=== PATIENT | female | born 1945 | race Caucasian/White ===

== ENCOUNTER 2022-05-01 12:08 | Emergency (ER) | payer OTHER ==
[~2022-05-01] VITALS: Ht 154.9 cm; Wt 61.2 kg
[2022-05-01] MEDS ORDERED: DAPA10TA PO (12:28)
--- NOTE | 2022-05-01 12:30 | NUR ---
Pt bib RA, placed in room 2a by aircraft load controller, connected to monitor and inital VS obtained. VSS, PE WNL, NAD, pt complaining of mod to severe pain s/p ground level fall. Pain in medial back lumbar region, hurts to move. No gross deformites or outward signs of fall. Pt AAOx4 lucid and completely coherent.
[2022-05-01] MEDS ORDERED: ASPI81TA31 PO (12:34)
[2022-05-01] MEDS ORDERED: FAMO40TA7 PO (12:34)
[2022-05-01] MEDS ORDERED: CLOP75TA33 PO (12:34)
[2022-05-01] MEDS ORDERED: FURO20TA4 PO (12:34)
[2022-05-01] MEDS ORDERED: ESCI10TA PO (12:34)
[2022-05-01] MEDS ORDERED: TRAZ-257 PO (12:34)
[2022-05-01] MEDS ORDERED: LOSA50TA39 PO (12:34)
[2022-05-01] MEDS ORDERED: METO-357 PO (12:34)
[2022-05-01] MEDS ORDERED: ATOR80TA PO (12:34)
[2022-05-01] MEDS ORDERED: GABA-532 PO (12:34)
--- NOTE | 2022-05-01 12:35 | NUR ---
EDMD at bedside to eval pt. Full PE performed. NAD, PE WNL except for severe back pain in mid lumbar region upon movement. good distal pulses x4ext. Lungs ctab. pt denies any sob, n/v, dizziness. Pt states that she got dizzy and started to fall, reached out to grab the oven door handle to help stabilize her but instead took the oven door with her. No s/s xof distress present.
--- NOTE | 2022-05-01 12:40 | NUR ---
Attempted to insert 20g angio in Rt AC, got excellent blood return, but was unable to advance angio. Blood obtained, but was unable to salvage the IV. Site dressed with 2x2 and tape. Second IV attempted in Lt AC. with same issue. Was able to inject 1mg of dilaudid, however vain blew before i was able to flush line. Pt states that she feels some pain relief. Will reassess pain in 20 min. Pt denies any nausea or dizziness.
[2022-05-01] MEDS ORDERED: ONDANSETRON 4 MG/2 ML VIAL IV ONE (12:45)
[2022-05-01] MEDS ORDERED: HYDROMORPHONE 1 MG/1 ML DISP.SYRIN IV ONE (12:45)
[2022-05-01] MEDS ORDERED: HYDROMORPHONE 1 MG/1 ML DISP.SYRIN ONE ×2 (12:57→15:23)
[2022-05-01] MEDS ORDERED: ONDANSETRON 4 MG/2 ML VIAL ONE (12:57)
[2022-05-01 13:01] LABS: HEMATOCRIT 40.7 % (31.2-41.9); MEAN CORPUSCULAR HEMOGLOBIN 28.1 uug (24.7-32.8); MEAN CORPUSCULAR VOLUME 84.6 fL (75.5-95.3); PLATELET COUNT (AUTO) 327 K/uL (179-408)
--- NOTE | 2022-05-01 13:08 | NUR ---
PCXR performed at pt bedside without difficulty.
[2022-05-01 13:29] LABS: ALANINE AMINOTRANSFERASE 17 U/L (14-59); ALKALINE PHOSPHATASE 137 U/L (50-136); ASPARTATE AMINOTRANSFERASE 29 U/L (15-37); BILIRUBIN,DIRECT 0.1 mg/dL (0.0-0.2); BILIRUBIN,TOTAL 0.5 mg/dL (0.2-1.0); CARBON DIOXIDE 25 mmol/L (21-32); CHLORIDE 103 mmol/L (98-107); CREATININE 1.4 mg/dL (0.6-1.3); GLUCOSE 120 mg/dL (74-106); POTASSIUM 4.3 mmol/L (3.5-5.1); TOTAL PROTEIN, SERUM 7.7 g/dL (6.4-8.2); UREA NITROGEN, BLOOD 19 mg/dL (7-18)
--- NOTE | 2022-05-01 14:27 | NUR ---
Pt just taken down to CT by electro mechanical solar technician via [employer]. Pt's VSS with good color and temp. Pt states that she is virtually pain free when she does not move. I told her that if she feels like she needs more pain medication to just let me know.
--- NOTE | 2022-05-01 15:15 | NUR ---
Pt's reassessed at 05/17, relayed to EDMD and 1mg dilaudid IVP order obtained. Pt medicated using 6 rights and pain reassessed at 610 pain. current pain rating relayed to EDMD.
--- NOTE | 2022-05-01 16:00 | NUR ---
Pt disconnected from monitor and gotten up out of bed and ambulated to bathroom with steady gait and minimal pain. VSS, 101/64, 98% RA, 16rpm, 78bpm. no s/sx of distress present.
--- NOTE | 2022-05-01 16:00 | NUR ---
EDMD at bedside to discuss dispo with pt. Pt will be dced home accompanied by daughter. 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 IV DCed from Lt forearm and site dressed with 4x4 and tape. VSS, NSR on 3 lead, 99% RA, PE WNL, pt has steady gait and stopped complaining of pain. Pt awaiting dc paperwork
[2022-05-01] MEDS ORDERED: OXYC-133 PO (16:34)
--- NOTE | 2022-05-01 16:45 | NUR ---
Pt given dc instructions and med info and confirmed understanding of aftercare and med info. Pt signed out and wheeled out to amb bay where daughter was waiting for her. Ptg placed in passenger seat without difficulty, pt very greatful for care received. No s/sx of distress.
[2022-05-01 17:11] VITALS: BP 134/70
== END 2022-05-01 16:45 | disposition home or self-care (01) ==
LOC: ER 12:08
DX: M48.061 Spinal stenosis, lumbar region without neurogenic claudication (principal); Z91.81 History of falling; M85.88 Other specified disorders of bone density and structure, other site; I25.10 Atherosclerotic heart disease of native coronary artery without angina pectoris; Z95.1 Presence of aortocoronary bypass graft; Z95.820 Peripheral vascular angioplasty status with implants and grafts; E11.51 Type 2 diabetes mellitus with diabetic peripheral angiopathy without gangrene; Z79.899 Other long term (current) drug therapy; Z79.02 Long term (current) use of antithrombotics/antiplatelets; Z79.82 Long term (current) use of aspirin; I45.2 Bifascicular block
CPT/HCPCS: 36415; 71045; 72131; 80048; 80076; 83880; 84484; 85025; 85730; 93005; 96374; 96375; 99284; J1170 ×2; J2405; A4663